=== PATIENT | male | born 1970 ===

== ENCOUNTER → 2021-08-15 | Outpatient (CLI) | payer BC ==
--- NOTE | 2021-08-15 11:16 | Diagnostic Imaging Report ---
EXAMINATION: Lumbar spine MRI without contrast, 08/15/2021. TECHNIQUE: Multiplanar, multisequence MRI of the lumbar spine was performed without contrast. INDICATION: Chronic low back pain with leg pain. FINDINGS: There is normal height and alignment of the vertebral bodies. The tip of the conus is unremarkable in appearance and location. L1-L2: Unremarkable. L2-L3: There is mild broad-based bulging disc material with bilateral facet and ligamentum flavum hypertrophy. There is no central stenosis. There is mild bilateral neural foraminal stenosis. L3-L4: There is a broad-based bulging disc. There is bilateral facet and ligamentum flavum hypertrophy. Findings cause moderate central stenosis with narrowing of the left lateral recess. There is moderate bilateral neural foraminal stenosis. L4-L5: There is disc desiccation with a broad central disc protrusion. There is bilateral facet and ligamentum flavum hypertrophy. There is severe central stenosis with narrowing of the lateral recesses. There is severe bilateral neural foraminal stenosis. L5-S1: There is disc desiccation with a central disc protrusion containing an annular tear. There is mild facet hypertrophy. There is [id number] central stenosis with narrowing of the lateral recesses, right worse than left. There is moderate bilateral neural foraminal stenosis. The visualized intra-abdominal structures appear unremarkable. IMPRESSION: 1. Severe central stenosis at L4-L5 with bilateral severe neural foraminal narrowing as well. Moderate similar findings seen at L3-L4 and L5-S1. Dictated by: Dictated on workstation # [id number]
== END ==
LOC: RAD 08:45
PROVIDERS: ATTEND Orthopaedic Surgery
DX: M48.07 Spinal stenosis, lumbosacral region (principal); M54.16 Radiculopathy, lumbar region
CPT/HCPCS: 72148

== ENCOUNTER 2022-12-31 05:29 | Outpatient (CLI) | payer BC ==
[~2022-12-31] VITALS: Ht 170.2 cm; Wt 79.4 kg
[2022-12-31] MEDS ORDERED: CETI1TAB3 PO (09:18)
[2022-12-31] MEDS ORDERED: LISI1TAB44 PO (09:18)
== END 2022-12-31 09:20 | disposition home or self-care (01) ==
LOC: PREOP 05:29
PROVIDERS: ATTEND Surgery
DX: Z01.818 Encounter for other preprocedural examination (principal)

== ENCOUNTER 2023-01-09 12:29 | Day surgery (SDC) | payer BC ==
[~2023-01-09] VITALS: Ht 170.2 cm; Wt 79.4 kg
[~2023-01-09 12:29] MED LIST: CETI1TAB3 PO; LISI1TAB44 PO
[2023-01-09] MEDS ORDERED: LACTATED RINGERS 1,000 ML 1,000 ML IV STA (12:34)
[2023-01-09 12:50] VITALS: BP 114/79
--- NOTE | 2023-01-09 15:43 | Progress Note-Pre Operative ---
Pre-Operative Progress Note Date H&P Reviewed: Jan 09, 2023 Time H&P Reviewed: 15:43 History & Physical: H&P Reviewed, Patient Examed, No changes noted Pre-Operative Diagnosis: screening colonoscopy LEENA STAHL DO Jan 09, 2023 15:43
--- NOTE | 2023-01-09 16:19 | Progress Note-Post Operative ---
Post-Operative Progess Note Surgeon (s)/Inspector Insulation (s) Surgeon LEENA STAHL DO Inspector Insulation: n/a Pre-Operative Diagnosis screening colonoscopy Post-Operative Diagnosis Ascending polyps x2 Procedure & Operative Findings Date of Procedure 01/09/23 Procedure Performed/Findings colonoscopy with polypectomy of ascending colon Anesthesia Type per DRAW MACHINE OPERATOR Estimated Blood Loss Estimated blood loss (mL): none Specimens/Packing Specimens Removed Ascending colon polyps x2 LEENA STAHL DO Jan 09, 2023 16:19
[2023-01-09 16:20] VITALS: BP 103/64
--- NOTE | 2023-01-09 16:20 | Discharge Inst-Simple/Standard ---
Discharge Inst-Standard Patient Instructions/Follow Up Plan of Care/Instructions/FU: 2 weeks Ese Activity as Tolerated: Yes Discharge Diet: Regular Diet LEENA STAHL DO Jan 09, 2023 16:20
[2023-01-09 16:25] VITALS: BP 110/62
[2023-01-09 16:30] VITALS: BP 101/66
[2023-01-09 17:15] VITALS: BP 101/66
--- NOTE | 2023-01-09 17:15 | Anesthesia-General Post-Op ---
MAC Patient Condition Mental Status/LOC: Same as Preop Cardiovascular: Satisfactory Nausea/Vomiting: Absent Respiratory: Satisfactory Pain: Controlled Complications: Absent Post Op Complications Complications None Follow Up Care/Instructions Patient Instructions None needed. Anesthesiology Discharge Order Discharge Order Patient is doing well, no complaints, stable vital signs, no apparent adverse anesthesia problems. No complications reported per nursing. VIVEK ABAD CRNA Jan 09, 2023 17:15
--- NOTE | 2023-01-10 03:10 | OPERATIVE REPORT ---
DATE OF SERVICE: 01/09/2023 PREOPERATIVE DIAGNOSIS: Screening colonoscopy. POSTOPERATIVE DIAGNOSES: Colon polyps, diverticulosis. PROCEDURE: Colonoscopy with hot biopsy polypectomy x2. SURGEON: Leena Mulligan DO ANESTHESIA: Per CONTROL SYSTEMS ENG. ESTIMATED BLOOD LOSS: None. COMPLICATIONS: None. INDICATIONS: The patient is a 52-year-old male, needing screening colonoscopy. He understands risks and benefits of procedure and wished to proceed. Consent was signed in chart. DESCRIPTION OF PROCEDURE: The patient was taken to the endoscopy suite, placed in left lateral recumbent position. Timeout was performed. Digital rectal exam was performed. No palpable polyps, masses or ulcerations. Scope was inserted in the rectum, advanced all the way to the cecum with minimal difficulty. Prep was adequate. Scope was then slowly retracted back. No polyps, masses or ulcerations in the cecum. In ascending colon, 2 polyps were present, which hot biopsy polypectomy was performed. Scope was then continued slowly retracted back. No polyps, masses or ulcerations within the remainder of the ascending, transverse, or descending colon. Sigmoid colon had some diverticulosis. No polyps, masses or ulcerations. Scope was slowly retracted back to the rectum, where it was also retroflexed noting no other pathology. Scope was returned to its normal position, slowly withdrawn until completely removed. The patient tolerated the procedure well, no complications, taken to recovery room in stable condition. RECOMMENDATIONS: The patient will need repeat colonoscopy in 5 years. Any issues before that, be seen at that time. He will follow up on pathology in two weeks. The patient with diverticulosis, would recommend high fiber diet. Job ID: [id number] DocumentID: [id number] Dictated Date: 01/09/2023 19:31:15 Provider Service Representative Date: 01/10/2023 03:07:00 Dictated By: LEENA MULLIGAN DO
== END 2023-01-09 17:15 | disposition home or self-care (01) ==
LOC: ENDO 12:29
PROVIDERS: ATTEND Surgery
DX: Z12.11 Encounter for screening for malignant neoplasm of colon (principal); D12.2 Benign neoplasm of ascending colon; K57.30 Diverticulosis of large intestine without perforation or abscess without bleeding; Z87.891 Personal history of nicotine dependence